=== PATIENT | female | born 1940 | race Caucasian/White ===

== ENCOUNTER → 2016-10-26 | Outpatient (CLI) | payer OTHER ==
[~2016-10-26] MED LIST: AMLODIPINE BESY10 MG PO; ASPIR 8181 M1 PO; ASPIRIN81 M2 PO; CALCIUM 500 MG1 EACH PO; CENTRAL-VITE S1 EAC2 PO; CIPROFLOXACIN500 M1 PO; CO Q-1010 MG PO; CRESTOR10 MG PO; DAILY VITAMIN1 EAC4 PO; DIOVAN160 MG PO; FLONASE16 G1 BOTH NARES; INCRUSE ELLI62.5 MCG IH; METOPROLOL TART25 MG PO; OMEPRAZOLE20 MG PO; PRILOSEC OTC20 MG PO; SYNTHROID100 MCG PO; VITAMIN D1000 UNIT PO; VITAMIN D31000 UNIT PO
== END | disposition home or self-care (01) ==
LOC: RAD 12:52
DX: I10 Essential (primary) hypertension (principal); I25.10 Atherosclerotic heart disease of native coronary artery without angina pectoris; G45.9 Transient cerebral ischemic attack, unspecified
CPT/HCPCS: 93880